=== PATIENT | male | born 1955 ===

== ENCOUNTER 2023-06-16 10:28 | Outpatient (CLI) | payer OTHER, SELFPAY ==
--- NOTE | 2023-06-16 10:42 | XR_ITS ---
WS: [id number] Right hip, 3 views, AP pelvis 2 views, 06/16/2023 Clinical Data: R HIP PAIN Comparison: None. Findings: No fractures or dislocations are seen. The right hip shows no erosion, sclerosis, narrowing, cyst for mation or fragmentation of the right femoral head. There is slight loss of the normal spherical conto ur of the right femoral head. There is a small right acetabular lip. The left hip is unremarkable. Th e soft tissues are not remarkable. The adjacent pelvis is normal. Impression: 1. Minimal osteoarthritis of right hip. 2. 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 Tonnis classification: grade 1: sclerosis of femoral head and acetabulum or slight joint space narrow ing or slight lipping at joint margins of the right hip
== END 2023-06-16 10:29 | disposition home or self-care (01) ==
PROVIDERS: PCP Nurse Practitioner Family; Visit Provider Nurse Practitioner Family
DX: M16.11 Unilateral primary osteoarthritis, right hip (principal)
CPT/HCPCS: 73503